=== PATIENT | male | born 1945 | race Caucasian/White ===

== ENCOUNTER 2024-04-12 10:18 | Inpatient (IN) | payer OTHER, BC ==
[2024-04-12 11:32] VITALS: BMI 25.7
[2024-04-12 11:33] LABS: BASO % 0.2 % (0-2.0); EOS % 0.7 % (0-4.5); HEMATOCRIT 47.9 % (35.4-49); HEMOGLOBIN 16.5 GM/dL (11.7-16.9); LYMPH % 6.6 % (8-40); MCH 32.5 pg (25.7-33.7); MCHC 34.4 g/dl (32.0-35.9); MEAN CELL VOLUME 94.4 fl (80-96); MEAN PLT VOLUME 8.5 fl (7.5-11.1); MONO % 5.4 % (3.8-10.2); NEUT % 87.1 % (42.8-82.8); PLATELET COUNT 171 10^3/uL (134-434); RBC 5.07 M/mm3 (4.00-5.60); WHITE BLOOD COUNT 9.9 K/mm3 (4.0-10.0)
[2024-04-12 11:39] LABS: INR 1.51 (0.83-1.09); PROTHROMBIN TIME (PATIENT) 17.2 SEC (9.7-13.0)
[2024-04-12 11:59] LABS: POTASSIUM 4.1 mmol/L (3.5-5.1)
[2024-04-12 12:01] LABS: ALBUMIN 3.9 g/dl (3.4-5.0); BLOOD UREA NITROGEN 27.6 mg/dL (7-18); CALCIUM 9.2 mg/dL (8.5-10.1)
[2024-04-12 12:04] LABS: CREATININE 1.1 mg/dL (0.55-1.3)
[2024-04-12 12:06] LABS: BILIRUBIN,TOTAL 0.9 mg/dL (0.2-1); TOT PROT 7.4 g/dl (6.4-8.2)
[2024-04-12] MEDS ORDERED: FENTANYL CITRATE/PF 50 MCG/ML VIAL ONE (12:40)
[2024-04-12] MEDS ORDERED: HYDROmorphone HCl 2 MG/ML VIAL ONE (14:02)
[2024-04-12] MEDS: HYDROmorphone HCl 2 MG/ML VIAL IVPUSH ONE (14:07)
[2024-04-12] MEDS: LIDOCAINE 5% TOPICAL PATCH TP SCH (15:56)
[2024-04-12] MEDS: WARFARIN NA 3 MG TABLET PO SCH (17:58)
[2024-04-12] MEDS: oxyCODONE HCL 5 MG TABLET PO PRN (19:57)
[2024-04-12] MEDS: ACETAMINOPHEN 1000 MG/100 ML BAG IVPB PRN (21:42)
[2024-04-12] MEDS: LIDOCAINE PATCH REMOVAL MC SCH (21:44)
[2024-04-13 07:29] LABS: BASO % 0.2 % (0-2.0); EOS % 0.6 % (0-4.5); HEMOGLOBIN 15.9 GM/dL (11.7-16.9); LYMPH % 11.1 % (8-40); MCH 32.7 pg (25.7-33.7); MCHC 34.6 g/dl (32.0-35.9); MEAN CELL VOLUME 94.6 fl (80-96); MEAN PLT VOLUME 8.7 fl (7.5-11.1); MONO % 7.7 % (3.8-10.2); NEUT % 80.4 % (42.8-82.8); PLATELET COUNT 160 10^3/uL (134-434); RBC 4.86 M/mm3 (4.00-5.60); RDW 12.2 % (11.9-15.9); WHITE BLOOD COUNT 8.6 K/mm3 (4.0-10.0)
[2024-04-13 07:44] LABS: POTASSIUM 4.4 mmol/L (3.5-5.1)
[2024-04-13 07:53] LABS: ALBUMIN 3.5 g/dl (3.4-5.0); CALCIUM 8.9 mg/dL (8.5-10.1)
[2024-04-13 07:56] LABS: BILIRUBIN,TOTAL 1.1 mg/dL (0.2-1); CREATININE 1.1 mg/dL (0.55-1.3); TOT PROT 6.5 g/dl (6.4-8.2)
[2024-04-13] MEDS ORDERED: PATIENT'S OWN MEDICATION (NON-FORMULARY) (Losartan/Hydrochlorothiazide [Losartan-Hctz 100- PO SCH (10:00)
[2024-04-13] MEDS: HYDROCHLOROTHIAZIDE 12.5 MG CAPSULE (FP) PO SCH (10:13)
[2024-04-13] MEDS: LOSARTAN POTASSIUM 50 MG TABLET PO SCH (10:13)
[2024-04-13] MEDS: DIGOXIN 0.125 MG TABLET PO SCH (10:13)
[2024-04-13] MEDS ORDERED: LIDOCAINE PATCH REMOVAL MC SCH ×2 (10:15)
[2024-04-13] MEDS: INSULIN (LEVEMIR) 100 UNITS/ML UNITS SQ SCH (12:33)
[2024-04-13] MEDS: INSULIN (NOVOLOG) ASPART 100 UNITS/ML 10ML VIAL SQ SCH (12:37)
[2024-04-13] MEDS: oxyCODONE HCL 5 MG TABLET PO PRN (12:45)
[2024-04-13 15:14] LABS: INR 1.7 (0.83-1.09); PROTHROMBIN TIME (PATIENT) 18.9 SEC (9.7-13.0)
[2024-04-13] MEDS: COLLAGENASE CLOSTRIDIUM HIST. 30 GRAMS TUBE TP SCH (18:06)
[2024-04-13] MEDS ORDERED: INSULIN (NOVOLOG) ASPART 100 UNITS/ML 10ML VIAL ONE (21:39)
[2024-04-13] MEDS: LIDOCAINE PATCH REMOVAL MC SCH (21:43)
[2024-04-14] MEDS: oxyCODONE HCL 5 MG TABLET PO PRN (01:12)
[2024-04-14] MEDS ORDERED: INSULIN (NOVOLOG) ASPART 100 UNITS/ML 10ML VIAL ONE (06:48)
[2024-04-14 07:05] LABS: INR 1.96 (0.83-1.09); PROTHROMBIN TIME (PATIENT) 21.7 SEC (9.7-13.0)
[2024-04-14 07:35] LABS: BLOOD UREA NITROGEN 22.9 mg/dL (7-18)
[2024-04-14 07:38] LABS: CREATININE 0.9 mg/dL (0.55-1.3)
[2024-04-14 07:54] LABS: HEMOGLOBIN 17.8 GM/dL (11.7-16.9); MCH 33.2 pg (25.7-33.7); MCHC 35.6 g/dl (32.0-35.9); PLATELET COUNT 160 10^3/uL (134-434); RBC 5.37 M/mm3 (4.00-5.60); RDW 12.3 % (11.9-15.9); WHITE BLOOD COUNT 8.9 K/mm3 (4.0-10.0)
[2024-04-14] MEDS: ACETAMINOPHEN 1000 MG/100 ML BAG IVPB ONE (08:55)
[2024-04-14] MEDS: DIGOXIN 0.25 MG TABLET PO SCH (09:17)
[2024-04-14] MEDS: INSULIN (LEVEMIR) 100 UNITS/ML UNITS SQ SCH (22:51)
[2024-04-15 06:53] LABS: HEMATOCRIT 49.9 % (35.4-49); HEMOGLOBIN 17.2 GM/dL (11.7-16.9); MCH 32.4 pg (25.7-33.7); MCHC 34.5 g/dl (32.0-35.9); MEAN PLT VOLUME 8.9 fl (7.5-11.1); PLATELET COUNT 166 10^3/uL (134-434); RBC 5.31 M/mm3 (4.00-5.60); WHITE BLOOD COUNT 12.6 K/mm3 (4.0-10.0)
[2024-04-15 07:06] LABS: POTASSIUM 3.8 mmol/L (3.5-5.1)
[2024-04-15 07:10] LABS: ALBUMIN 3.2 g/dl (3.4-5.0); CALCIUM 8.8 mg/dL (8.5-10.1)
[2024-04-15 07:11] LABS: BLOOD UREA NITROGEN 23.6 mg/dL (7-18); MAGNESIUM 1.9 mg/dL (1.8-2.4)
[2024-04-15 07:15] LABS: BILIRUBIN,TOTAL 1.4 mg/dL (0.2-1); PHOSPHOROUS 2.9 mg/dL (2.5-4.9); TOT PROT 6.7 g/dl (6.4-8.2)
[2024-04-15 07:18] LABS: INR 2.38 (0.83-1.09); PROTHROMBIN TIME (PATIENT) 26.7 SEC (9.7-13.0)
[2024-04-15] MEDS: FUROSEMIDE 40 MG/4 ML INJECTABLE VIAL IVPUSH ONE (14:43)
[2024-04-15] MEDS: metoPROLOL SUCCINATE 25 MG TAB.SR.24H (FP) PO SCH ×2 (14:45→18:15)
[2024-04-15] MEDS: hydrALAZINE HCL 20 MG/ML VIAL IVPUSH PRN (18:15)
[2024-04-15] MEDS ORDERED: metoPROLOL SUCCINATE 25 MG TAB.SR.24H (FP) PO SCH (22:00)
[2024-04-15] MEDS: INSULIN (LEVEMIR) 100 UNITS/ML UNITS SQ SCH (22:16)
[2024-04-16] MEDS: INSULIN (LEVEMIR) 100 UNITS/ML UNITS SQ SCH ×2 (06:07→22:30)
[2024-04-16 07:50] LABS: BASO % 0.2 % (0-2.0); HEMATOCRIT 50.3 % (35.4-49); HEMOGLOBIN 17.7 GM/dL (11.7-16.9); MCH 32.7 pg (25.7-33.7); MCHC 35.1 g/dl (32.0-35.9); MEAN CELL VOLUME 93.3 fl (80-96); MEAN PLT VOLUME 9.3 fl (7.5-11.1); MONO % 8.6 % (3.8-10.2); NEUT % 86.2 % (42.8-82.8); PLATELET COUNT 228 10^3/uL (134-434); RDW 12.4 % (11.9-15.9); WHITE BLOOD COUNT 13.7 K/mm3 (4.0-10.0)
[2024-04-16 07:52] LABS: INR 2.68 (0.83-1.09); PROTHROMBIN TIME (PATIENT) 29.4 SEC (9.7-13.0)
[2024-04-16 08:06] LABS: POTASSIUM 3.9 mmol/L (3.5-5.1)
[2024-04-16 08:12] LABS: CALCIUM 9.1 mg/dL (8.5-10.1)
[2024-04-16 08:13] LABS: BLOOD UREA NITROGEN 34.6 mg/dL (7-18); MAGNESIUM 2.1 mg/dL (1.8-2.4)
[2024-04-16 08:17] LABS: BILIRUBIN,TOTAL 1.5 mg/dL (0.2-1); TOT PROT 6.9 g/dl (6.4-8.2)
[2024-04-16 09:20] LABS: BILIRUBIN,DIRECT 0.4 mg/dL (0.0-0.2)
[2024-04-16] MEDS ORDERED: ACETAMINOPHEN 1000 MG/100 ML BAG IVPB PRN (11:52)
[2024-04-16] MEDS: amLODIPine BESYLATE 10 MG TABLET (FP) PO SCH (12:27)
[2024-04-16] MEDS: dilTIAZem HCL 50 MG/10 ML - 10 ML VIAL IVPUSH PRN (14:03)
[2024-04-16] MEDS ORDERED: INSULIN (LEVEMIR) 100 UNITS/ML UNITS SQ SCH (16:47)
[2024-04-17] MEDS: INSULIN (LEVEMIR) 100 UNITS/ML UNITS SQ SCH (06:56)
[2024-04-17 08:13] LABS: BASO % 0.1 % (0-2.0); EOS % 0.3 % (0-4.5); HEMOGLOBIN 17.1 GM/dL (11.7-16.9); LYMPH % 7.1 % (8-40); MCH 32.6 pg (25.7-33.7); MCHC 34.8 g/dl (32.0-35.9); MEAN CELL VOLUME 93.6 fl (80-96); MEAN PLT VOLUME 8.7 fl (7.5-11.1); MONO % 10.5 % (3.8-10.2); PLATELET COUNT 254 10^3/uL (134-434); RBC 5.24 M/mm3 (4.00-5.60); RDW 12.4 % (11.9-15.9); WHITE BLOOD COUNT 11.3 K/mm3 (4.0-10.0)
[2024-04-17 08:18] LABS: INR 3.41 (0.83-1.09); PROTHROMBIN TIME (PATIENT) 37.2 SEC (9.7-13.0)
[2024-04-17 08:36] LABS: POTASSIUM 3.9 mmol/L (3.5-5.1)
[2024-04-17 08:43] LABS: ALBUMIN 2.9 g/dl (3.4-5.0); BLOOD UREA NITROGEN 46.4 mg/dL (7-18); CALCIUM 8.9 mg/dL (8.5-10.1); MAGNESIUM 2.3 mg/dL (1.8-2.4)
[2024-04-17 08:46] LABS: CREATININE 0.9 mg/dL (0.55-1.3)
[2024-04-17 08:48] LABS: BILIRUBIN,TOTAL 1.4 mg/dL (0.2-1); TOT PROT 6.7 g/dl (6.4-8.2)
[2024-04-17] MEDS: AMMONIUM LACTATE 12% LOTION 225 GM BOTTLE TP PRN (09:21)
[2024-04-17] MEDS: NIFEdipine E.R 60 MG TABLET PO ONE (09:21)
[2024-04-17] MEDS ORDERED: MAGNESIUM HYDROX 2400MG/30ML ORAL SUSPENSION 30 ML CUP PO PRN (15:31)
[2024-04-17] MEDS: DOCUSATE SODIUM 100 MG CAPSULE (FP) PO SCH (17:55)
[2024-04-17] MEDS: INSULIN (NOVOLOG) ASPART 100 UNITS/ML 10ML VIAL SQ SCH (17:55)
[2024-04-17] MEDS: WARFARIN NA 2 MG TABLET PO SCH (17:58)
[2024-04-17] MEDS: NIFEdipine E.R 60 MG TABLET PO SCH (22:05)
[2024-04-18 08:13] LABS: BASO % 0.1 % (0-2.0); EOS % 0.6 % (0-4.5); HEMATOCRIT 47.6 % (35.4-49); HEMOGLOBIN 16.8 GM/dL (11.7-16.9); LYMPH % 6.3 % (8-40); MCH 32.9 pg (25.7-33.7); MCHC 35.3 g/dl (32.0-35.9); MEAN CELL VOLUME 93.3 fl (80-96); MEAN PLT VOLUME 8.7 fl (7.5-11.1); MONO % 9.3 % (3.8-10.2); NEUT % 83.7 % (42.8-82.8); PLATELET COUNT 272 10^3/uL (134-434); PROTHROMBIN TIME (PATIENT) 50.4 SEC (9.7-13.0); RDW 12.1 % (11.9-15.9); WHITE BLOOD COUNT 11.5 K/mm3 (4.0-10.0)
[2024-04-18 08:36] LABS: INR 4.58 (0.83-1.09)
[2024-04-18 08:38] LABS: POTASSIUM 4.1 mmol/L (3.5-5.1)
[2024-04-18 08:46] LABS: BLOOD UREA NITROGEN 53.4 mg/dL (7-18)
[2024-04-18 08:48] LABS: BILIRUBIN,TOTAL 1.7 mg/dL (0.2-1); TOT PROT 6.7 g/dl (6.4-8.2)
[2024-04-18 09:02] LABS: CALCIUM 9.1 mg/dL (8.5-10.1)
[2024-04-18] MEDS ORDERED: metoPROLOL SUCCINATE 25 MG TAB.SR.24H (FP) PO SCH (13:34)
[2024-04-18 14:23] VITALS: RESP 18
[2024-04-18 15:03] LABS: EPI CELLS 3 /uL (0-25.1); HYALINE CASTS 1 /uL (0-3.1); PH,URINE 5.5 (5.0-8.0); URINE APPEARANCE CLOUDY; URINE BACTERIA >9,000 /uL (0-1359); URINE BILIRUBIN NEGATIVE (NEGATIVE); URINE COLOR YELLOW; URINE GLUCOSE (UA) TRACE (NEGATIVE); URINE KETONE NEGATIVE (NEGATIVE); URINE LEUK ESTERASE NEGATIVE (NEGATIVE); URINE NITRITE NEGATIVE (NEGATIVE); URINE PROTEIN 1+ (NEGATIVE); URINE RBC 6 /uL (0-23.9); URINE UROBILINOGEN 0.2 mg/dL (0.2-1.0); URINE WBC 8 /uL (0-25.8)
[2024-04-18 18:21] VITALS: BP 127/81; PULSE 82; TEMP 98.6
[2024-04-18] MEDS ORDERED: METOPROLOL SUCCINATE 50 MG, METOPROLOL SUCCINATE 25 MG PO SCH (22:00)
== END 2024-04-18 18:28 | DRG 184 ==
LOC: JER 10:18 → JERBED 14:35 → J6S 15:11 → J4W 21:09
PROVIDERS: ADMIT Internal Medicine; ATTEND Internal Medicine
DX: S22.42XA Multiple fractures of ribs, left side, initial encounter for closed fracture (principal); A52.16 Charcot's arthropathy (tabetic); I47.29 Other ventricular tachycardia; L97.929 Non-pressure chronic ulcer of unspecified part of left lower leg with unspecified severity; T79.7XXA Traumatic subcutaneous emphysema, initial encounter; R55 Syncope and collapse; I48.91 Unspecified atrial fibrillation; R74.01 Elevation of levels of liver transaminase levels; E11.51 Type 2 diabetes mellitus with diabetic peripheral angiopathy without gangrene; E11.621 Type 2 diabetes mellitus with foot ulcer; I10 Essential (primary) hypertension; W19.XXXA Unspecified fall, initial encounter; Y93.9 Activity, unspecified; Y92.89 Other specified places as the place of occurrence of the external cause; Y99.9 Unspecified external cause status; K59.00 Constipation, unspecified
CPT/HCPCS: 36415; 70450-TC; 71045-TC-FY; 71250-TC; 72125-TC; 80048; 80053; 80162; 81003; 82248; 82962; 83735; 84100; 85025; 85027; 85610; 86850; 86900; 86901; 93005; 93010; 94010; 97116-GP; 97162-GP; 97597; 99285-25; J0131

== ENCOUNTER 2025-09-06 13:35 | Inpatient (IN) | payer OTHER, BC ==
[2025-09-06] MEDS: SODIUM CHLORIDE 0.9% 500 ML INFUS.BAG IV ONE (14:34)
[2025-09-06 14:42] LABS: BG HCT 42.0 % (35.4-49); VENOUS BASE EXCESS 2.7 mmol/L (-2-2); VENOUS O2 SATURATION 40.4 % (70-80); VENOUS PCO2 31.0 mmHg (38-52); VENOUS PH 7.52 (7.310-7.410)
[2025-09-06 14:54] LABS: ABSOLUTE IMMATURE GRANULOCYTES 0.05 x10^3/uL (0.0-0.031); BASOPHILS # 0.02 x10^3/uL (0.01-0.08); EOSINOPHIL % 0.5 % (0.8-7.0); EOSINOPHILS # 0.05 x10^3/uL (0.04-0.54); MCHC 34.5 g/dl (32.3-36.5); MEAN CELL VOLUME 93.9 fl (79.0-92.2); MEAN PLT VOLUME 10.6 fl (9.4-12.4); MONOCYTE # 0.63 x10^3/uL (0.30-0.82); MONOCYTE % 6.0 % (5.3-12.2); RDW 11.8 % (12.2-16.6)
[2025-09-06 14:59] LABS: GLUCOSE,RANDOM 464 mg/dL (74-106)
[2025-09-06 15:00] LABS: TOT PROT 6.6 g/dl (6.4-8.2)
[2025-09-06 15:01] LABS: CO2 23 mmol/L (21-32)
[2025-09-06 15:03] LABS: ALK PHOS 136 U/L (40-150)
[2025-09-06 15:05] LABS: SGOT/AST 24 U/L (5-34); SGPT/ALT 11 U/L (0-55)
[2025-09-06 15:06] LABS: CREATININE 0.92 mg/dL (0.55-1.3)
[2025-09-06] MEDS: LACTATED RINGERS SOLUTION 1000 ML INFUS.BAG IV ONE (15:32)
[2025-09-06 15:52] LABS: URINE APPEARANCE CLEAR; URINE BILIRUBIN NEGATIVE (NEGATIVE); URINE COLOR YELLOW; URINE GLUCOSE (UA) 3+ (NEGATIVE); URINE KETONE 1+ (NEGATIVE); URINE LEUK ESTERASE NEGATIVE (NEGATIVE); URINE NITRITE NEGATIVE (NEGATIVE); URINE PROTEIN NEGATIVE (NEGATIVE); URINE UROBILINOGEN 0.2 mg/dL (0.2-1.0)
[2025-09-06] MEDS: INSULIN REGULAR HUMAN 100 UNITS/ML *VIAL IVPUSH ONE (16:14)
[2025-09-06] MEDS ORDERED: INSULIN REGULAR HUMAN 100 UNITS/ML *VIAL ONE (16:16)
[2025-09-06 17:04] LABS: GLUCOSE,RANDOM 358.0 mg/dL (74-106)
[2025-09-06 17:06] LABS: CO2 27.0 mmol/L (21-32)
[2025-09-06 17:10] LABS: CREATININE 0.96 mg/dL (0.55-1.3)
[2025-09-06] MEDS: ATORVASTATIN CA 40 MG TABLET (FP) PO SCH (21:17)
[2025-09-06] MEDS: APIXABAN 5 MG TABLET PO SCH (21:17)
[2025-09-06] MEDS: INSULIN (NOVOLOG MIX 70/30) 100 UNITS/ML MDV SQ SCH (21:23)
[2025-09-06] MEDS ORDERED: INSULIN ASPART SLIDING SCALE (NOVOLOG) 1 VIAL SQ SCH (22:00)
[2025-09-06] MEDS: MELATONIN 5 MG TABLETS PO PRN (22:42)
[2025-09-07 04:17] VITALS: BMI 23.1
[2025-09-07] MEDS: INSULIN ASPART SLIDING SCALE (NOVOLOG) 1 VIAL SQ SCH (06:23)
[2025-09-07] MEDS: INSULIN (NOVOLOG MIX 70/30) 100 UNITS/ML MDV SQ SCH (06:25)
[2025-09-07] MEDS ORDERED: INSULIN ASPART SLIDING SCALE (NOVOLOG) 1 VIAL SQ SCH (07:00)
[2025-09-07] MEDS: ACETAMINOPHEN 500 MG TABLET (FP) PO PRN (09:02)
[2025-09-07] MEDS: amLODIPine BESYLATE 10 MG TABLET (FP) PO SCH (09:02)
[2025-09-07 09:23] LABS: MCHC 34.0 g/dl (32.3-36.5); MEAN CELL VOLUME 93.8 fl (79.0-92.2); MEAN PLT VOLUME 10.6 fl (9.4-12.4); RDW 11.9 % (12.2-16.6)
[2025-09-07 10:22] LABS: GLUCOSE,RANDOM 32 mg/dL (74-106); TOT PROT 6.1 g/dl (6.4-8.2)
[2025-09-07 10:23] LABS: CO2 27 mmol/L (21-32)
[2025-09-07 10:25] LABS: ALK PHOS 106 U/L (40-150)
[2025-09-07 10:27] LABS: SGOT/AST 24 U/L (5-34); SGPT/ALT 17 U/L (0-55)
[2025-09-07 10:28] LABS: CREATININE 1.00 mg/dL (0.55-1.3)
[2025-09-07] MEDS: COLLAGENASE CLOSTRIDIUM HIST. 30 GRAMS TUBE TP SCH (15:58)
[2025-09-08 05:59] VITALS: RESP 18
[2025-09-08 08:43] LABS: MCHC 33.2 g/dl (32.3-36.5); MEAN CELL VOLUME 96.9 fl (79.0-92.2); MEAN PLT VOLUME 10.3 fl (9.4-12.4); RDW 12.1 % (12.2-16.6)
[2025-09-08 09:07] LABS: GLUCOSE,RANDOM 178.0 mg/dL (74-106)
[2025-09-08 09:08] LABS: TOT PROT 6.1 g/dl (6.4-8.2)
[2025-09-08 09:09] LABS: CO2 28.0 mmol/L (21-32)
[2025-09-08 09:11] LABS: ALK PHOS 97.0 U/L (40-150)
[2025-09-08 09:13] LABS: SGOT/AST 27.0 U/L (5-34); SGPT/ALT 17.0 U/L (0-55)
[2025-09-08 09:14] LABS: CREATININE 0.91 mg/dL (0.55-1.3)
[2025-09-08] MEDS ORDERED: FUROSEMIDE 20 MG TABLET (FP) PO SCH (10:00)
[2025-09-08] MEDS: POTASSIUM CHLORIDE ORAL LIQUID 20 MEQ/15 ML PO ONE (12:15)
[2025-09-09] MEDS: ASPIRIN COATED 81 MG TABLET.EC PO SCH (11:00)
[2025-09-09 11:29] LABS: MCHC 34.1 g/dl (32.3-36.5); MEAN CELL VOLUME 95.4 fl (79.0-92.2); MEAN PLT VOLUME 10.0 fl (9.4-12.4); RDW 11.9 % (12.2-16.6)
[2025-09-09 11:49] LABS: GLUCOSE,RANDOM 149.0 mg/dL (74-106)
[2025-09-09 11:50] LABS: CO2 24.0 mmol/L (21-32)
[2025-09-09] MEDS: INSULIN ASPART SLIDING SCALE (NOVOLOG) 1 VIAL SQ SCH (11:51)
[2025-09-09] MEDS: INSULIN (NOVOLOG) ASPART 100 UNITS/ML 10ML VIAL SQ SCH (11:51)
[2025-09-09 11:55] LABS: CREATININE 0.67 mg/dL (0.55-1.3)
[2025-09-09] MEDS: NYSTATIN POWDER 100,000 UNITS/GM - 15 GM TOPICAL POWDER TP SCH (11:59)
[2025-09-09] MEDS: INSULIN GLARGINE (LANTUS) 100 UNITS/ML UNITS SQ SCH (21:29)
[2025-09-10 07:33] LABS: MCHC 32.6 g/dl (32.3-36.5); MEAN CELL VOLUME 98.4 fl (79.0-92.2); MEAN PLT VOLUME 10.1 fl (9.4-12.4); RDW 12.2 % (12.2-16.6)
[2025-09-10] MEDS ORDERED: INSULIN GLARGINE (LANTUS) 100 UNITS/ML UNITS SQ SCH (07:34)
[2025-09-10 07:38] LABS: GLUCOSE,RANDOM 203.0 mg/dL (74-106); TOT PROT 5.7 g/dl (6.4-8.2)
[2025-09-10 07:39] LABS: CO2 26.0 mmol/L (21-32)
[2025-09-10 07:41] LABS: ALK PHOS 109.0 U/L (40-150)
[2025-09-10 07:43] LABS: SGOT/AST 30.0 U/L (5-34); SGPT/ALT 20.0 U/L (0-55)
[2025-09-10 07:44] LABS: CREATININE 0.76 mg/dL (0.55-1.3)
[2025-09-10 13:23] VITALS: BP 122/71; PULSE 70; TEMP 98.2
== END 2025-09-10 20:22 | DRG 74 ==
LOC: JER 13:35 → JERBED 18:08 → J6S 19:06
PROVIDERS: ADMIT Student in an Organized Health Care Education/Training Program; ATTEND Internal Medicine
DX: E11.40 Type 2 diabetes mellitus with diabetic neuropathy, unspecified (principal); E11.65 Type 2 diabetes mellitus with hyperglycemia; I10 Essential (primary) hypertension; I48.91 Unspecified atrial fibrillation; E11.621 Type 2 diabetes mellitus with foot ulcer; L97.509 Non-pressure chronic ulcer of other part of unspecified foot with unspecified severity; E11.42 Type 2 diabetes mellitus with diabetic polyneuropathy; F03.90 Unspecified dementia, unspecified severity, without behavioral disturbance, psychotic disturbance, mood disturbance, and anxiety; E11.51 Type 2 diabetes mellitus with diabetic peripheral angiopathy without gangrene; R29.6 Repeated falls
CPT/HCPCS: 36415; 70450-TC; 71045-TC-FY; 72125-TC; 72170-TC-FY; 73630-TC-RT-FY; 80048; 80053; 81003; 82010; 82607; 82803; 82962; 83036; 83735; 84100; 84484; 85025; 85027; 87070; 87086; 87205; 93005; 93010; 93922; 93926-TC; 97116-GP; 97162-GP; 99285-25